=== PATIENT | male | born 1960 | race Caucasian/White ===

== ENCOUNTER → 2020-10-06 09:51 | Outpatient (CLI) | payer OTHER, SELFPAY ==
--- NOTE | 2020-10-06 09:56 | ART_ITS ---
Reason For Study: Pain in left ankle and joints of left foot Procedure A bilateral lower extremity continuous wave Doppler with analog waveform analysis,segmental pressures,and ankle brachial indexes without exercise. Left Segmental Pressures Left brachial= 190mmHg. Left posterior tibial artery = 235mmHg. Left dorsalis pedis artery = 238mmHg. Left digit = 148 mmHg. The left dorsalis pedis waveforms are triphasic. The left posterior tibial artery waveforms are triphasic. Right Segmental Pressures Right brachial= 189mmHg. Right posterior tibial artery = 235mmHg. Right dorsalis pedis artery = 229mmHg. Right digit = 189 mmHg. The right dorsalis pedis waveforms are triphasic. The right posterior tibial artery waveforms are triphasic. Indices The right ankle brachial index by the dorsalis pedis is 1.21. The right ankle brachial index by the posterior tibial artery is 1.24. The right digital-brachial index is 0.99. The left ankle brachial index by the dorsalis pedis is 1.25. The left ankle brachial index by the posterior tibial artery is 1.24. The left digital-brachial index is 0.78. Interpretation Summary Triphasic Doppler waveforms are noted at ankle level bilaterally. Pulse-volume recordings appear satisfactory at all levels bilaterally, including low-thigh, calf, ankle, and digital levels. Resting ankle-brachial indices are normal bilaterally. Digital-brachial indices are normal bilaterally. There is no evidence of significant arterial occlusive disease in the lower extremities bilaterally. Ordering Physician: Aleksandar Mathew Referring Physician: Vic Seo Performed By: Yane Hadley RVT
--- NOTE | 2020-10-06 09:56 | VDLE_ITS ---
Reason For Study: Pain in left ankle and joints of left foot Procedure LEFT This is a venous duplex using B-mode, color GSV is normal. flow and spectral Doppler. CFV is compressible, spontaneous, phasic, Exam performed in department. competent, and demonstrates normal A preliminary report was called and/or faxed augmentation. to [place]. FV is compressible, spontaneous, phasic, competent and demonstrates normal augmentation. POP V is compressible, spontaneous, phasic, competent and demonstrates normal augmentation. T/P Trunk is compressible. PTV is compressible. LT PerV is compressible. Interpretation Summary Deep veins of the left lower extremity are patent and compressible segmentally. There is no evidence of left lower extremity deep vein thrombosis. Valvular competence appears intact within the proximal deep venous system on the left . The left great saphenous vein appears patent and compressible segmentally. Ordering Physician: Aleksandar Mathew Referring Physician: Vic Seo Performed By: Yane Hadley RVT
== END ==
PROVIDERS: PCP Family Medicine; Referring Provider Podiatrist Foot & Ankle Surgery; Visit Provider Podiatrist Foot & Ankle Surgery
DX: M19.072 Primary osteoarthritis, left ankle and foot (principal); M25.572 Pain in left ankle and joints of left foot; M62.831 Muscle spasm of calf
CPT/HCPCS: 93923; 93971

== ENCOUNTER 2023-07-04 05:46 | Day surgery (SDC) | payer BC, SELFPAY ==
[2023-06-28 09:18] LABS: Hematocrit 40.2 % (40-54); Hemoglobin 13.8 g/dL (13.0-16.5); Mean Corp Hgb Conc 34.3 g/dL (32-36); Mean Corpuscular Hgb 29.6 pg (27.0-32.0); Mean Corpuscular Volume 86.1 fL (80-94); Mean Platelet Vol. 11.2 fl (6.2-12.0); Platelet Count 176 K/mm3 (150-450); RBC Distribution Width CV 12.2 % (11.6-14.6); RBC Distribution Width SD 38.4 fl (35.1-43.9); Red Blood Count 4.67 M/mm3 (4.6-6.2); White Blood Count 5.5 K/mm3 (4.4-11.0)
[2023-06-28 09:42] LABS: Anion Gap 6 (5-15); BUN 31 mg/dL (7-18); BUN/Creat Ratio 30.1 RATIO (10-20); Chloride 102 mmol/L (98-107); Creatinine, Serum 1.03 mg/dL (0.70-1.30); EST Glomerular Filtration Rate 78 mL/min (>60); Est Glom Filt Rate - Afr Amer 94 mL/min (>60); Glucose 317 mg/dL (74-106); Potassium 3.6 mmol/L (3.5-5.1); Sodium Level 137 mmol/L (136-145)
[2023-06-28 10:26] LABS: Hemoglobin A1c 7.5 % (3.8-5.6)
[2023-07-01 10:44] LABS: Anion Gap 8 (5-15); BUN 18 mg/dL (7-18); BUN/Creat Ratio 19.3 RATIO (10-20); Calcium,Total 8.9 mg/dL (8.5-10.1); Chloride 102 mmol/L (98-107); Creatinine, Serum 0.93 mg/dL (0.70-1.30); EST Glomerular Filtration Rate 87 mL/min (>60); Est Glom Filt Rate - Afr Amer 106 mL/min (>60); Estimated Creatinine Clearance 84.47 ml/min; Glucose 235 mg/dL (74-106); Potassium 3.8 mmol/L (3.5-5.1); Sodium Level 137 mmol/L (136-145)
[2023-07-04] MEDS: Lactated Ringers 1,000 ML 15 ML IV (06:35)
[2023-07-04 06:37] VITALS: BP 168/88; PULSE 58; RESP 18; TEMP 36.4; O2SAT 98; BMI 40.1
[2023-07-04 07:00] LABS: Bedside Glucose 256 mg/dL (74-106)
--- NOTE | 2023-07-04 07:06 | PCM.HP.BLA ---
History and Physical Date of Admission: 07/04/23 Visit Reasons: UMBILICAL HERNIA Allergies latex Allergy (Mild, Verified 06/10/23 09:43) Otherniacin Allergy (Mild, Verified 06/10/23 09:44) PT UNSURE OF REACTIONlisinopril Allergy (Mild, Uncoded 06/10/23 09:43) Swelling Medications colchicine (gout) 0.6 mg tablet 0.6 mg PO DAILY PRN 06/10/23 [History Confirmed 06/10/23] diazepam 5 mg tablet (Valium) 5 mg PO QHS PRN 06/10/23 [History Confirmed 06/10/23] flaxseed oil 1,000 mg capsule 1,000 mg PO DAILY 06/10/23 [History Confirmed 06/10/23] labetalol 300 mg tablet 300 mg PO BID 06/10/23 [History Confirmed 06/10/23] losartan 100 mg tablet 100 mg PO DAILY 06/10/23 [History Confirmed 06/10/23] multivitamin 1 tab PO DAILY 06/10/23 [History Confirmed 06/10/23] nabumetone 750 mg tablet 750 mg PO BID 06/10/23 [History Confirmed 06/10/23] omega-3 900 mg-dha 360 mg-epa 455 mg-fish oil 1,000 mg capsule (Fish Oil) cap PO BID 06/10/23 [History Confirmed 06/10/23] triamterene 37.5 mg-hydrochlorothiazide 25 mg capsule 1 cap PO DAILY 06/10/23 [History Confirmed 06/10/23] PFSH Medical History (Updated 06/10/23 @ 09:51 by Melissa Cheney) Back pain Gout HTN (hypertension) Left leg injury Surgical History (Updated 06/10/23 @ 09:51 by Melissa Cheney) H/O synovectomy History of surgery on lower extremity Previous back surgery S/P placement of nerve stimulator Social History (Updated 06/10/23 @ 09:51 by Melissa Cheney) Smoking Status: Current some day smoker alcohol intake: current HPI HPI HPI: 62-year-old gentleman is being referred by Dr. Soto Zaldivar for surgical consultation regarding an umbilical hernia and a written compromise surgical consult recommendations will return to him. Patient states that 2 to 3 weeks ago when he was camping became very symptomatic protruding out incarcerated he was able to manipulate it and reduce it. In the past he is lost significant amount of weight but now he is plateaued and does not feel that he will be losing any more weight from his current size. He denies myocardial infarction or CVA or DVT. He claims that he is having trouble with accelerated hypertension and will be seeing accountant bookkeeper Dr. Mary Almeida at the very end of the month. The patient is very much however interested in proceeding with umbilical hernia repair because it was so symptomatic and briefly incarcerated. He has never had any previous abdominal surgery Patient's body weight is 270 pounds with a BMI of 39 Exam Const General: cooperative, comfortable and no acute distress Nutritional Appearance: obese morbidly obese [facility] Head: normal to inspection Eyes General: appearance normal, both eyes and all related structures Neck Neck: normal visual inspection Chest Chest palpation & inspection: normal inspection of the chest Resp Effort & Inspection: normal respiratory effort Auscultation: clear to auscultation bilaterally Cardio Rate: regular rate Rhythm: regular rhythm GI Other: Large abdomen protuberant with majority of the weight pushing forward. 2 cm diameter umbilical hernia with preperitoneal fatty tissue currently nontender and reducible Musc Cervical Spine: normal cervical lordosis Skin General: no rashes or lesions noted Other: Well-healed lumbar surgical incision. Evidence of subcutaneous stimulator left lower back Neuro General: patient alert, patient awake and patient oriented x3 Extrem General: no calf tenderness Psych Appearance: grossly normal Assessment and Plan Assessment and Plan (1) Umbilical hernia without obstruction or gangrene: Status: Acute Plan: 62-year-old gentleman with a symptomatic umbilical hernia. He does not believe that he can lose any additional weight. I propose for an umbilical herniorrhaphy with Ventralex mesh. I hope to place that retrorectus. In detail discussed the technique, benefit, risk, alternatives. He has had an opportunity to ask and have questions answered. He is aware that there are no guarantees of success and that recurrence is possible. I am hoping to be able to see an [address] He is aware that this will require general anesthetic. I appreciate the opportunity of assisting with the surgical care and we will schedule and proceed at his discretion Copy: Dr. Soto Crouch M.D., F.A.C.S On preoperative valuation the patient was noted to have an elevated blood glucose. We contacted Dr. Soto Zaldivar and he initiated the patient on metformin. Follow-up laboratory demonstrated improvement in his fasting glucose. We have elected to proceed with surgery and anticipate that he will continue to have ongoing primary care follow-up postoperatively as well. He has had an opportunity to ask and have questions answered. We will proceed as noted. Vic Crouch M.D., F.A.C.S.
--- NOTE | 2023-07-04 07:08 | DCINST_ITS ---
Discharge Instructions Procedure General Surgery Diet Discharge Diet: Light diet - advance as tolerated (if you have questions about your diet instructions, please talk to you doctor.) Activity Discharge Activity: May Not Drive (for 3-5 days or while taking narcotic pain medicine.) May shower in (days): 1 Lifting Restrictions: 10 pounds Dressing / Incision Call your doctor if your incision/area has: Continuous Slow Oozing, Sudden Increased Bleeding, Increased Pain/ Swelling, Increased Redness and Foul Smelling Discharge Call your doctor if you observe: Fever of 101 or Higher Suture Line Care: Avoid Pulling/Pushing and Avoid Pinching/Bending Additional Dressing/Incision Instructions:: Change or remove dressing in 4 days. Leave steri-strips in place for 1 week. Follow Up Care Please Follow Up With: Vic Crouch MD When: Call [phone] to make an appointment to be seen in about 10 days. Test Results: Test results from this visit will be discussed in further detail at your follow- up appointment, if applicable. Discharge Plan Admission Attending Provider: Vic Crouch Primary Care Provider: Soto Zaldivar Discharge Orders/Prescriptions Prescriptions: No Action triamterene-hydrochlorothiazid 37.5-25 mg capsule 1 cap PO DAILY losartan 100 mg tablet 100 mg PO DAILY nabumetone 750 mg tablet 750 mg PO BID labetalol 300 mg tablet 300 mg PO BID diazepam [Valium] 5 mg tablet 5 mg PO QHS PRN (Reason: anxiety) colchicine (gout) 0.6 mg tablet 0.6 mg PO DAILY PRN (Reason: gout) flaxseed oil 1,000 mg capsule 1,000 mg PO DAILY Rx Instructions: administer with a meal Fish Oil 900 mg-360 mg- 455 mg-1,000 mg capsule 1 cap PO DAILY multivitamin Tablet 1 tab PO DAILY clonidine HCl 0.2 mg tablet 0.2 mg PO QHS Patient Comments: TAKE ONE TABLET BY MOUTH EVERY NIGHT AT BEDTIME Other Ambulatory Orders: 12 Lead EKG (Routine) Location: None Selected Ordered By: Dr. Vic Crouch Referrals / Follow Up: Soto Zaldivar MD [Primary Care Provider] - Disposition Disposition (needs filled in before D/C Order can be placed): Home, Self Care
[2023-07-04] MEDS: Cefazolin 2 GM in 0.9% Normal Saline 100 ML IV (07:24)
[2023-07-04] MEDS: Bupivacaine Mpf 0.5% 30 ML VIAL (07:40)
--- NOTE | 2023-07-04 08:20 | PCM.OPRPT ---
Report of Operation Date of Procedure: 07/04/23 Pre-Operative Diagnosis: Symptomatic umbilical hernia Post-Operative Diagnosis: Symptomatic umbilical hernia Surgery/Procedure Performed:: Umbilical herniorrhaphy with [address] hernia patch, reference [id number], lot [id number], expiry date 12/04/2024 Description of Surgical Findings:: Timeout and informed consent was obtained. 62-year-old gentleman was taken to the operating placed on table underwent general anesthesia. Ancef 2 g were given intravenously. The abdomen was sterilely prepped and draped. 0.5% Marcaine was used as a local anesthetic. A total of 18 cc was used. Local was instilled. A curvilinear incision was made in the inferior portion of the umbilicus. Sharp and blunt dissection was used to release the adherent preperitoneal fatty tissue. A retrorectus space was performed with sharp dissection blunt dissection electrocautery dissection. I then placed a [address] patch immediately in the retrorectus position. I secured the tails in place with interrupted 0 Nurolon. I closed the fascia transversely with interrupted 0 Nurolon. Skin edges proximal interrupted 4 Monocryl subdermal stitches. Dermabond was applied followed by cottonball Telfa OpSite dressing. Sponge and instrument and needle counts were reported to the surgeon to be correct. Specimens none. Drains none. Blood loss minimal. The patient was taken to the recovery room in satisfactory addition without apparent complication Vic Crouch M.D., F.A.C.S. Surgeon: Christophe Figueroa Type of Anesthesia: General and Local Anesthesiologist: Christophe Figueroa
[2023-07-04 08:34] VITALS: BP 129/67; BP 168/88; PULSE 54; RESP 16; TEMP 36.4; O2SAT 93
[2023-07-04 08:45] VITALS: BP 127/69; BP 168/88; PULSE 51; RESP 16; O2SAT 97
[2023-07-04 08:53] LABS: Bedside Glucose 242 mg/dL (74-106)
[2023-07-04 09:00] VITALS: BP 142/75; BP 168/88; PULSE 57; RESP 16; TEMP 36.3; O2SAT 95
== END 2023-07-04 09:24 | disposition home or self-care (01) ==
LOC: SDC 05:50 → AC 05:50
PROVIDERS: Physician Assistant; PCP Family Medicine; Referring Provider Surgery; Visit Provider Surgery
PROC: (CPT 49593; principal; 2023-07-04 07:15)
DX: K42.9 Umbilical hernia without obstruction or gangrene (principal); E66.01 Morbid (severe) obesity due to excess calories; Z68.41 Body mass index [BMI] 40.0-44.9, adult; F17.200 Nicotine dependence, unspecified, uncomplicated; I10 Essential (primary) hypertension; Z79.899 Other long term (current) drug therapy
CPT/HCPCS: 49593; 00750; 36415; 80048; 82962; 83036; 85027; 93005; J7120; C1781; J2405

== ENCOUNTER → 2023-07-13 | Outpatient (CLI) | payer BC, SELFPAY ==
--- NOTE | 2023-07-13 12:19 | US_ITS ---
INDICATION: ESSENTIAL HYPERTENSION EXAMINATION: Ultrasound US Kidney(s) complete (eg, kidneys and bladder) TECHNIQUE: Lambert scale and color doppler images were obtained of the kidneys and urinary bladder. COMPARISON: None. FINDINGS: RIGHT KIDNEY: 13.8 cm in length. No Hydronephrosis. 6 mm nonobstructing stone. 3.1 cm simple cyst with no follow-up recommended. Normal vascular flow demonstrated with color Doppler. LEFT KIDNEY: 12.9 cm in length. No Hydronephrosis. No sonographic evidence of a renal stone. No evidence of a mass. Normal vascular flow demonstrated with color Doppler. URINARY BLADDER: Unremarkable. Bilateral ureteral jets were visualized. US/Kidney and Bladder IMPRESSION: Unremarkable renal ultrasound. Electronically Signed: Ryder Verdin DO at 22:06 EDT ,
== END | disposition home or self-care (01) ==
LOC: US 12:18
PROVIDERS: PCP Family Medicine; Referring Provider Student in an Organized Health Care Education/Training Program; Visit Provider Student in an Organized Health Care Education/Training Program
DX: I10 Essential (primary) hypertension (principal)
CPT/HCPCS: 76770

== ENCOUNTER → 2023-07-15 | Outpatient (CLI) | payer BC, SELFPAY ==
--- NOTE | 2023-07-15 07:52 | RDU_ITS ---
Reason For Study: HTN Right Renal Artery Left Renal Artery Right renal artery ostium Left renal artery ostium 118.3/32.7 152.3/43.7 RSV/EDV. PSV/EDV. Right renal artery proximal Left renal artery proximal PSV/EDV 152.3/29.0 PSV/EDV. 105.1/32.7 . Right renal artery mid 157.9/48.3 Left renal artery mid 92.0/25.7 PSV/EDV. PSV/EDV . Right renal artery distal Left renal artery distal 92.0/25.7 171.3/40.9 PSV/EDV. PSV/EDV. Right RAR 2.20. Left RAR 1.52. Right Renal Parenchyma Left Renal Parenchyma Upper Pole Medula 34.0/13.0 Left upper pole medulla 33.3/10.6 PSV/EDV. PSV/EDV . Right upper pole medulla EDR 0.40 . Left upper pole medulla EDR 0.30 . Right upper pole medulla R.I. Left upper pole medulla R.I. 0.68 . 0.62 . UP Cortex 20.4/6.2 PSV/EDV. Upper Long Cortx 19.9/7.3 PSV/EDV. Left upper pole cortex EDR 0.30 . Right upper pole cortex EDR 0.40 . Left upper pole cortex R.I. 0.69 . Right upper pole cortex R.I. 0.64 . Left lower Pole medulla 32.1/8.5 Right lower Pole medulla 23.4/6.9 PSV/EDV . PSV/EDV . Left lower pole medulla EDR 0.30 . Right lower pole medulla EDR 0.30 . Left lower pole medulla R.I. 0.74 . Right lower pole medulla R.I. Lower Pole Cortx 17.9/5.6 PSV/EDV. 0.70 . Left lower pole cortex EDR 0.30 . Lower Pole Cortex 21.2/6.9 PSV/EDV. Left lower pole cortex R.I. 0.69 . Right lower pole cortex EDR 0.30 . Left Renal Hilar Right lower pole cortex R.I. 0.67 . LT Hilar avg 177.6/45.0 PSV/EDV . Right Renal Hilar Left hilar acceleration time 40 Right Hilar avg 134.0/31.1 PSV/EDV. m/sec. Right hilar acceleration time 40 Left Renal Dimensions m/sec. Left kidney size 12.30 cm . Right Renal Dimensions Left cortical dimension 1.8 cm . Right kidney size 13.50 cm . Right cortical dimension 1.85 cm . Aorta Proximal abdominal aorta 2.66 x 2.63 cm . Proximal abdominal aorta peak systolic velocity is 77.8 cm/sec . Distal abdominal aorta 2.04 x 2.04 cm . Distal abdominal aorta peak systolic velocity is 74.4 cm/sec . VL/Renal Artery Duplex Ultrasound Interpretation Summary Right renal artery patent with normal velocities and no evidence of stenosis Left renal artery patent with normal velocities and no evidence of stenosis Right renal vein patent Left renal vein patent Right kidney normal in size Left kidney normal in size Ordering Physician: Mary Almeida Referring Physician: Mary Almeida Performed By: Heron Gorman RVT
[2023-07-15 09:36] LABS: Absolute Neutrophil Count 3.3 X10^3/uL (2.0-7.7); Basophil# 0.04 X10^3/uL; Basophil% 0.7 % (0-1); Eosinophil# 0.29 X10^3/uL; Eosinophils% 4.9 % (0-5); Hematocrit 39.7 % (40-54); Hemoglobin 13.5 g/dL (13.0-16.5); Lymphocyte % 27.3 % (19-41); Mean Corpuscular Hgb 29.2 pg (27.0-32.0); Mean Corpuscular Volume 85.7 fL (80-94); Mean Platelet Vol. 10.5 fl (6.2-12.0); Monocyte# 0.57 X10^3/uL; Monocyte% 9.7 % (0-10); NRBC Flagged by Analyzer 0 % (0-5); Neutrophil # 3.33 X10^3/uL (2.7-7.7); Neutrophil % 56.9 % (47-70); Platelet Count 208 K/mm3 (150-450); RBC Distribution Width CV 12.2 % (11.6-14.6); RBC Distribution Width SD 37.6 fl (35.1-43.9); Red Blood Count 4.63 M/mm3 (4.6-6.2); White Blood Count 5.9 K/mm3 (4.4-11.0)
[2023-07-15 10:20] LABS: Anion Gap 7 (5-15); BUN 18 mg/dL (7-18); BUN/Creat Ratio 20.8 RATIO (10-20); Calcium,Total 9.1 mg/dL (8.5-10.1); Chloride 101 mmol/L (98-107); Creatinine, Serum 0.86 mg/dL (0.70-1.30); EST Glomerular Filtration Rate 95 mL/min (>60); Est Glom Filt Rate - Afr Amer 116 mL/min (>60); Glucose 214 mg/dL (74-106); Potassium 3.1 mmol/L (3.5-5.1); Sodium Level 136 mmol/L (136-145)
[2023-07-21 16:09] LABS: Aldosterone, Serum 9.3 ng/dL (0.0-30.0); Renin, Plasma 0.192 ng/mL/hr (0.167-5.380)
== END | disposition home or self-care (01) ==
PROVIDERS: PCP Family Medicine; Referring Provider Student in an Organized Health Care Education/Training Program; Visit Provider Student in an Organized Health Care Education/Training Program
DX: I10 Essential (primary) hypertension (principal)
CPT/HCPCS: 36415; 80048; 82088; 84244; 85025; 93975

== ENCOUNTER → 2023-07-16 | Outpatient (CLI) | payer OTHER, SELFPAY ==
--- NOTE | 2023-07-16 08:15 | MRI_ITS ---
INDICATION: PROXIMAL FIBULA PAIN left knee EXAMINATION: MRI - LEFT MR Knee W/O Contrast TECHNIQUE: Multiplanar and multisequence MR images of the LEFT knee. IV Contrast Dosage and Agent: None. COMPARISON: FINDINGS: BONE: Moderate chondromalacia and osteoarthritis medial lateral compartments. Mild chondromalacia and osteoarthritis patellofemoral compartment. JOINT: No pathologic effusion, synovial hypertrophy, or intra-articular body. MUSCLES: Unremarkable. MENISCI: Complex tear posterior horn medial meniscus extends to superior and inferior articular surfaces. Anterior horn is intact. CRUCIATE LIGAMENTS: ACL and PCL are intact. COLLATERAL LIGAMENTS: Medial collateral ligament and lateral collateral ligamentous complex, inclusive of the popliteal tendon, are intact. CARTILAGE: Articular cartilage intact. OTHER SOFT TISSUES: Moderate suprapatellar joint effusion. Mild subcutaneous edema anterior to the patella and patellar tendon. MRI/Lower Ext Joint Only (Routine) IMPRESSION: Complex tear posterior horn medial meniscus. Moderate suprapatellar joint effusion. Tricompartmental chondromalacia and osteoarthritis as above. Electronically Signed: Wes Haro MD at 10:49 EDT ,
== END | disposition home or self-care (01) ==
LOC: MRI 08:22
PROVIDERS: PCP Family Medicine; Referring Provider Anesthesiology Pain Medicine; Visit Provider Anesthesiology Pain Medicine
DX: G57.92 Unspecified mononeuropathy of left lower limb (principal)
CPT/HCPCS: 73721

== ENCOUNTER → 2023-09-08 | Outpatient (CLI) | payer BC, SELFPAY ==
--- NOTE | 2023-09-08 11:43 | NEURO_ITS ---
NCS and/or EMG Patient Report Ordering Doctor: Mirza Knapp DATE OF SERVICE: 09/08/23 Clinical Summary: 63 year old male presenting with complaints of twitching/cramping of his left leg and cramps along with numbness in his left foot. This EMG/NCS was performed to evaluate for left lumbosacral radiculopathy. Nerve Conduction Studies Summary: The left sural SNAP distal latency was prolonged bilaterally. The left peroneal motor conduction velocity was reduced. Needle Examination Summary: There was a higher proportion of motor unit action potentials with reduced recruitment, higher amplitude, increased duration, and polyphasia in the left t ibialis anterior and peroneus longus muscles. Impression: Chronic neurogenic changes seen in the left tibialis anterior and peroneus longus muscles can be seen in the setting of a chronic, mild, left L5 radiculopathy. There is no electrodiagnostic evidence of a large-fiber peripheral polyneuropathy. Multi Select Codes Neurology Neurology Interp Codes: 47126-59 Musc test done w/n test comp (interp) (1) and 29854-03 Nrv cndj tst 5-6 studies (interp)
== END | disposition home or self-care (01) ==
LOC: PSN 10:28
PROVIDERS: PCP Family Medicine; Referring Provider Specialist; Visit Provider Specialist
DX: R20.2 Paresthesia of skin (principal); M25.562 Pain in left knee
CPT/HCPCS: 95886; 95908